=== PATIENT | female | born 1960 | race Caucasian/White ===

== ENCOUNTER → 2016-04-22 | Outpatient (CLI) | payer BC ==
[~2016-04-22] MED LIST: ALBINS; ALBU0.5N2 INH; ATRINS NEB; AZIT250T PO; CETI10TA84 PO; DEXT1TAB50 PO; FLNIN; HYDR200T5 PO; MOME200A INH; MONT1TAB3 PO; PRED10TA PO; PRED50TA PO; SNG10; SYMIN160 INH
--- NOTE | 2016-04-22 10:27 | DIAGNOSTIC IMAGING REPORT ---
TWO VIEW CHEST CLINICAL HISTORY: Extrinsic asthma. FINDINGS: PA and lateral chest radiographs are compared to study dated 04/13/2007. The cardiomediastinal silhouette is unremarkable. There is mild chronic elevation of the right hemidiaphragm with right basilar atelectasis. The lungs and pleural spaces are otherwise clear. There is no pneumothorax. The bony thorax appears intact. Cholecystectomy clips are identified in the right upper quadrant. IMPRESSION: No active disease in the chest. Electronically signed by: Andrea Arceo M.D. 04/22/2016 10:25 AM Dictated Date/Time: 04/22/2016 10:24 AM
== END | disposition home or self-care (01) ==
LOC: C.RAD1850 09:44
PROVIDERS: ATTEND Internal Medicine Pulmonary Disease
DX: J45.909 Unspecified asthma, uncomplicated (principal)

== ENCOUNTER → 2016-04-26 | Outpatient (CLI) | payer BC | END | disposition home or self-care (01) | LOC: C.LABSPEC 11:10 | PROVIDERS: ATTEND Internal Medicine Pulmonary Disease | DX: R05 Cough (principal) ==

== ENCOUNTER 2016-04-28 15:37 | Emergency (ER) | payer BC ==
[~2016-04-28] VITALS: Ht 158.8 cm; Wt 99.8 kg
[~2016-04-28 15:37] MED LIST changes: -ATRINS NEB; -DEXT1TAB50 PO; -HYDR200T5 PO; -MOME200A INH; -MONT1TAB3 PO; -PRED10TA PO
[2016-04-28 15:41] VITALS: TEMP 36.3
--- NOTE | 2016-04-28 16:02 | EMERGENCY ROOM VISIT NOTE ---
History Report prepared by Queenie: Marco A Aguilar Under the Supervision of: Dr. Sarath Jackson D.O. First contact with patient: 15:45 Chief Complaint: RESPIRATORY PROBLEMS Stated Complaint: ASTHMA ATTACK History of Present Illness The patient is a 55 year old female who presents to the Emergency Room with complaints of shortness of breath and chest pain. The patient has had symptoms which have been ongoing for the last 4 weeks. She's been on multiple antibiotics as well as rounds of prednisone. She's also been started on a bronchodilator. She was on Augmentin and doxycycline and was switched to Levaquin this Friday by her primary care physician. She's been using bronchodilator nebulizers and also she is been taking steroids. The patient states she's had a subjective fever as well as runny nose. She complaint of cough and shortness of breath as well as chest discomfort. She describes her discomfort as continuous and pressure. She states that the bronchodilator therapy does help at times. The patient became concerned because symptoms were starting to worsen throughout the day. She states it is worsened with walking as well as coughing. She also complains of sore throat. Source of History: patient Onset: The last four weeks Position: other (Lungs) Symptom Intensity: moderate Quality: other (shortness of breath) Timing: worsening Modifying Factors (Worsening): exertion, other (coughing) Associated Symptoms: + chest pain, + cough, + fevers, + sorethroat Note: She has associated rhinorrhea. Review of Systems See HPI for pertinent positives & negatives. A total of 10 systems reviewed and were otherwise negative. Past Medical & Surgical Medical Problems: (1) Asthma (2) Bronchitis Surgical Problems: (1) History of appendectomy (2) History of cholecystectomy Family History Diabetes mellitus Hypertension Kidney disease Kidney stones Social History Smoking Status: Never Smoker Smokeless Tobacco Use: No Alcohol Use: occasionally Marital Status: Housing Status: lives with family Occupation Status: employed Current/Historical Medications Scheduled Cetirizine (Zyrtec), 10 MG PO DAILY Dextromethorphan-Guaifenesin (Mucinex Dm Maximum Streng), 1 TAB PO BID Hydroxychloroquine Sulfate (Plaquenil), 200 MG PO DAILY Mometasone Furoate-Formoterol (Dulera 200/5 Mcg), 2 PUFFS INH BID Montelukast Sodium (Singulair), 10 MG PO QPM Prednisone (Prednisone), 0 PO UD Scheduled PRN Ipratropium [place] (Ipratropium [place]), 1 VIAL NEB Q6 PRN for Shortness of Breath Allergies Coded Allergies: Aspirin (Verified Allergy, Mild, SWELLING, 04/28/16) Physical Exam Vital Signs Date Time Temp Pulse Resp B/P Pulse Ox O2 Delivery O2 Flow Rate FiO2 04/28/16 18:59 79 22 151/103 98 04/28/16 18:14 79 22 151/103 98 Nasal Cannula 2.0 04/28/16 17:09 80 20 148/98 98 Nasal Cannula 2.0 04/28/16 16:19 99 Nasal Cannula 2.0 04/28/16 16:18 90 04/28/16 16:12 98 Room Air 04/28/16 16:00 98 Room Air 04/28/16 15:41 36.3 101 36 158/90 99 Room Air Physical Exam GENERAL: Patient is awake alert in no acute distress patient is resting comfortably and showing no signs of anxiety EYES: The conjunctivae are clear. The pupils are round and reactive. EARS, NOSE, MOUTH AND THROAT: The nose is without any evidence of any deformity. There is mild erythema in the posterior oral pharynx. There is no significant swelling. Nasal mucosa is erythematous. NECK: The neck is nontender and supple. RESPIRATORY: Normal respiratory effort is noted there is no evidence of wheezing rhonchi or rales CARDIOVASCULAR: Regular rate and rhythm noted there no murmurs rubs or gallops normal S1 normal S2 GASTROINTESTINAL: The abdomen is soft. Bowel sounds are present in all quadrants. Abdomen is nontender MUSCULOSKELETAL/EXTREMITIES: There is no evidence of gross deformity full range of motion is noted in the hips and shoulders SKIN: There is no obvious evidence of any rash. There are no petechiae, pallor or cyanosis noted. NEUROLOGIC: Patient is awake alert and oriented x3 strength is symmetric. Medical Decision & Procedures ER Provider Diagnostic Interpretation: X-ray results as stated below per interpretation by me and the radiologist. CHEST ONE VIEW PORTABLE CLINICAL HISTORY: Respiratory distress. Asthma attack. COMPARISON STUDY: 04/22/2016 FINDINGS: The cardiac and mediastinal contours are normal. There is no evidence of focal pulmonary consolidation. There is no evidence of failure. 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 There is mild elevation/eventration of the right hemidiaphragm. IMPRESSION: No active disease in the chest. Electronically signed by: Luis Miguel Wilson M.D. 04/28/2016 4:15 PM Dictated Date/Time: 04/28/2016 4:14 PM Laboratory Results 04/28/16 16:12 Red Blood Count 4.58, Mean Corpuscular Volume 93.2, Mean Corpuscular Hemoglobin 33.4, Mean Corpuscular Hemoglobin Concent 35.8, Mean Platelet Volume 9.1, Neutrophils (%) (Auto) 71.3, Lymphocytes (%) (Auto) 19.9, Monocytes (%) (Auto) 7.4, Eosinophils (%) (Auto) 0.3, Basophils (%) (Auto) 0.2, Neutrophils # (Auto) 7.15, Lymphocytes # (Auto) 1.99, Monocytes # (Auto) 0.74, Eosinophils # (Auto) 0.03, Basophils # (Auto) 0.02 04/28/16 16:12 Test 04/28/16 16:00 04/28/16 16:12 04/28/16 16:17 04/28/16 16:20 Urine Color YELLOW Urine Appearance CLEAR (CLEAR) Urine pH 7.5 (4.5-7.5) Urine Specific [place] 1.006 (1.000-1.030) Urine Protein NEG (NEG) Urine Glucose (UA) NEG (NEG) Urine Ketones NEG (NEG) Urine Occult Blood NEG (NEG) Urine Nitrite NEG (NEG) Urine Bilirubin NEG (NEG) Urine Urobilinogen NEG (NEG) Urine Leukocyte Esterase SMALL (NEG) Urine WBC (Auto) 1-5 /hpf (0-5) Urine RBC (Auto) 0-4 /hpf (0-4) Urine Hyaline Casts (Auto) 0 /lpf (0-5) Urine Epithelial Cells (Auto) >30 /lpf (0-5) Urine Bacteria (Auto) NEG (NEG) White Blood Count 10.02 K/uL (4.8-10.8) Red Blood Count 4.58 M/uL (4.2-5.4) Hemoglobin 15.3 g/dL (12.0-16.0) Hematocrit 42.7 % (37-47) Mean Corpuscular Volume 93.2 fL (80-100) Mean Corpuscular Hemoglobin 33.4 pg (25-34) Mean Corpuscular Hemoglobin Concent 35.8 g/dl (32-36) Platelet Count 328 K/uL (130-400) Mean Platelet Volume 9.1 fL (7.4-10.4) Neutrophils (%) (Auto) 71.3 % Lymphocytes (%) (Auto) 19.9 % Monocytes (%) (Auto) 7.4 % Eosinophils (%) (Auto) 0.3 % Basophils (%) (Auto) 0.2 % Neutrophils # (Auto) 7.15 K/uL (1.4-6.5) Lymphocytes # (Auto) 1.99 K/uL (1.2-3.4) Monocytes # (Auto) 0.74 K/uL (0.11-0.59) Eosinophils # (Auto) 0.03 K/uL (0-0.5) Basophils # (Auto) 0.02 K/uL (0-0.2) RDW Standard Deviation 44.7 fL (36.4-46.3) RDW Coefficient of Variation 13.2 % (11.5-14.5) Immature Granulocyte % (Auto) 0.9 % Immature Granulocyte # (Auto) 0.09 K/uL (0.00-0.02) Prothrombin Time 10.3 SECONDS (9.0-12.0) Prothromb Time International Ratio 1.0 (0.9-1.1) Activated Partial Thromboplast Time 22.9 SECONDS (21.0-31.0) Partial Thromboplastin Ratio 0.9 Anion Gap 15.0 mmol/L (3-11) Est Creatinine Clear Calc Drug Dose 81.6 ml/min Estimated GFR () 86.3 Estimated GFR (Non- 74.5 BUN/Creatinine Ratio 23.1 (10-20) Calcium Level 8.9 mg/dl (8.5-10.1) Total Bilirubin 0.2 mg/dl (0.2-1) Aspartate Amino Transf (AST/SGOT) 11 U/L (15-37) Alanine Aminotransferase (ALT/SGPT) 26 U/L (12-78) Alkaline Phosphatase 65 U/L (45-117) Total Creatine Kinase 44 U/L (26-192) Creatine Kinase MB 1.9 ng/ml (0.5-3.6) Creatine Kinase MB Ratio 4.3 (0-3.0) Troponin I < 0.015 ng/ml (0-0.045) Pro-B-Type Natriuretic Peptide 48 pg/ml (0-900) Total Protein 7.9 gm/dl (6.4-8.2) Albumin 3.2 gm/dl (3.4-5.0) Globulin 4.7 gm/dl (2.5-4.0) Albumin/Globulin Ratio 0.7 (0.9-2) Bedside D-Dimer 81 ng/mlFEU (0-450) Influenza Type A Antigen Neg for Influ A (NEG) Influenza Type B Antigen Neg for Influ B (NEG) Laboratory results per my review. Medications Administered Medications (Trade) Dose Ordered Sig/Elissa Route Start Time Stop Time Status Last Admin Dose Admin Sodium Chloride (Nss 1000ml) 1,000 ml @ 999 mls/hr Q1H1M STAT IV 04/28/16 16:52 04/28/16 17:52 DC 04/28/16 16:52 999 MLS/HR Albuterol/ Ipratropium (Duoneb) 3 ml NOW STAT INH 04/28/16 18:16 04/28/16 18:17 DC 04/28/16 18:26 3 ML ECG Indication: SOB/dyspnea Rate (beats per minute): 87 Rhythm: normal sinus Findings: no ectopy, other (No acute ST abnormalities) Comparison ECG Date: 26 Apr 2009 Change: no significant change ED Course 1545: The patient was evaluated in room C3. A complete history and physical examination were performed. 1652: Sodium Chloride 1,000 ml @ 999 mls/hr IV 1708: I reassessed the patient at this time. We discussed her results. 1816: Duoneb 3 ml INH 1900: Upon reevaluation, the patient is resting. I discussed the results and treatment plan with her. She verbalized agreement of the treatment plan. She was discharged home. Medical Decision Prior records/ancillary studies reviewed. Triage Nursing notes reviewed. The patient's history was concerning for respiratory difficulties. Differential diagnosis: Etiologies such as infections, reactive airway disease, pneumonia, pneumothorax , COPD, CHF, cardiac ischemia, pulmonary embolism, musculoskeletal, gastrointestinal, as well as others were entertained. The patient is a 55-year-old female who presented to the emergency department for an evaluation of shortness of breath. The patient has been increasing cough and shortness of breath for a few months. The patient has been seen by her primary care physician and has been started on multiple antibiotics. She's had a course of Augmentin doxycycline and was recently started on Levaquin. The patient is also been taking steroids. The patient was seen by her primary lead pony rider as well as her primary care physician. The patient was not hypoxic or tachycardic. I discussed the patient's laboratory and radiographic studies with him. Her EKG did not show any acute changes despite having ongoing pain for quite some time and her cardiac biomarkers were negative. The patient was treated with bronchodilator therapy in emergency department. She was also given IV fluids. On subsequent reevaluation she was somewhat improved. I discussed the patient's condition with her and at this time she does not appear to meet criteria for any further inpatient management. She was encouraged to rest and avoid any strenuous activity. She was encouraged to call her primary care physician as well as her primary lead pony rider in the morning to schedule a follow-up appointment. Otherwise she was encouraged to return to the emergency Department immediately if symptoms change worsen or if the need arises. Impression Primary Impression: SOB (shortness of breath) Additional Impressions: Anterior chest wall pain Dehydration Scribe Attestation The scribe's documentation has been prepared under my direction and personally reviewed by me in its entirety. I confirm that the note above accurately reflects all work, treatment, procedures, and medical decision making performed by me. Departure Information Dispostion Home / Self-Care Referrals Shanta Calderón D.O. (PCP) James Isbell M.D. Forms HOME CARE DOCUMENTATION FORM, IMPORTANT VISIT INFORMATION, WORK / SCHOOL INSTRUCTIONS Patient Instructions ED Dyspnea Shortness of Breath, My [facility] Additional Instructions Call your primary care physician to schedule a follow-up appointment for this week. I would recommend repeat laboratory study to reassess your Juan F levels specifically your HCO3 and your BUN because they were abnormal today in the emergency department. Drink plenty clear liquids. Follow-up with your lead pony rider this week for reevaluation. Continue all medications as prescribed. Return to the emergency department immediately if symptoms change worsen or the need arises. Problem Qualifiers
--- NOTE | 2016-04-28 16:17 | DIAGNOSTIC IMAGING REPORT ---
CHEST ONE VIEW PORTABLE CLINICAL HISTORY: Respiratory distress. Asthma attack. COMPARISON STUDY: 04/22/2016 FINDINGS: The cardiac and mediastinal contours are normal. There is no evidence of focal pulmonary consolidation. There is no evidence of failure. 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 There is mild elevation/eventration of the right hemidiaphragm. IMPRESSION: No active disease in the chest. Electronically signed by: Luis Miguel Wilson M.D. 04/28/2016 4:15 PM Dictated Date/Time: 04/28/2016 4:14 PM
[2016-04-28 16:18] VITALS: Ht 158.8 cm; Wt 99.8 kg
[2016-04-28 16:19] VITALS: O2SAT 99
[2016-04-28 16:23] LABS: BASO % 0.2 %; BASO ABS # 0.02 K/uL (0-0.2); COMPLETE YES; EOS % 0.3 %; HEMATOCRIT 42.7 % (37-47); IG% 0.9 %; LYMPH % 19.9 %; LYMPH ABS # 1.99 K/uL (1.2-3.4); MEAN CELL VOLUME 93.2 fL (80-100); MEAN CORPUSCULAR HEMOGLOBIN 33.4 pg (25-34); MEAN CORPUSCULAR HGB CONC 35.8 g/dl (32-36); MEAN PLATELET VOLUME 9.1 fL (7.4-10.4); MONO % 7.4 %; NEUT % 71.3 %; PLATELET COUNT 328 K/uL (130-400); RED BLOOD COUNT 4.58 M/uL (4.2-5.4); WHITE BLOOD COUNT 10.02 K/uL (4.8-10.8)
[2016-04-28 16:34] LABS: PARTIAL THROMBOPLASTIN RATIO 0.9; PROTHROMBIN TIME (PATIENT) 10.3 SECONDS (9.0-12.0)
[2016-04-28 16:34] LABS: URINE APPEARANCE CLEAR (CLEAR); URINE BILIRUBIN NEG (NEG); URINE COLOR YELLOW; URINE EPITHELIAL CELL AUTO >30 /lpf (0-5); URINE NITRITE NEG (NEG); URINE PH 7.5 (4.5-7.5); URINE SPECIFIC GRAVITY 1.006 (1.000-1.030); UROBILINOGEN NEG (NEG)
[2016-04-28 16:36] LABS: ALT/SGPT 26 U/L (12-78); AST/SGOT 11 U/L (15-37); BLOOD UREA NITROGEN 20 mg/dl (7-18); BUN/CREATININE RATIO 23.1 (10-20); CALCIUM 8.9 mg/dl (8.5-10.1); CARBON DIOXIDE 18 mmol/L (21-32); CHLORIDE 108 mmol/L (98-107); CREATININE 0.88 mg/dl (0.60-1.20); GLUCOSE 100 mg/dl (70-99); POTASSIUM 3.9 mmol/L (3.5-5.1); SODIUM 141 mmol/L (136-145)
[2016-04-28 16:40] LABS: MANUAL MICROSCOPIC REQUIRED? NO; REVIEW REQ? NO
[2016-04-28 16:41] LABS: ALB/GLOB RATIO 0.7 (0.9-2); ALKALINE PHOSPHATASE 65 U/L (45-117); CKMB/CK RATIO 4.3 (0-3.0)
[2016-04-28] MEDS ORDERED: PRED10TA PO (16:50)
[2016-04-28] MEDS ORDERED: MOME200A INH (16:51)
[2016-04-28] MEDS ORDERED: MONT1TAB3 PO (16:51)
[2016-04-28] MEDS ORDERED: SODIUM CHLORIDE 0.9% 1000ML 1,000 ML IV STA (16:52)
[2016-04-28] MEDS ORDERED: ATRINS NEB (16:52)
[2016-04-28] MEDS ORDERED: HYDR200T5 PO (16:52)
[2016-04-28] MEDS ORDERED: DEXT1TAB50 PO (16:53)
[2016-04-28] MEDS ORDERED: ALBUT/IPRATROP 3MG/0.5MG NEB 3 ML VIAL INH STA (18:16)
[2016-04-28 18:59] VITALS: BP 151/103; PULSE 79; O2SAT 98
== END 2016-04-28 19:00 | disposition home or self-care (01) ==
LOC: C.EDB 15:37 → C.EDC 19:00
DX: R06.02 Shortness of breath (principal); R07.89 Other chest pain; E86.0 Dehydration; J45.909 Unspecified asthma, uncomplicated; Z79.899 Other long term (current) drug therapy; Z83.3 Family history of diabetes mellitus; Z82.49 Family history of ischemic heart disease and other diseases of the circulatory system; Z84.1 Family history of disorders of kidney and ureter

== ENCOUNTER → 2016-11-01 | Outpatient (CLI) | payer BC ==
[~2016-11-01] MED LIST changes: -ALBINS; -ALBU0.5N2 INH; +ATRINS NEB; -AZIT250T PO; +DEXT1TAB50 PO; -FLNIN; +HYDR200T5 PO; +MOME200A INH; +MONT1TAB3 PO; +PRED10TA PO; -PRED50TA PO; -SNG10; -SYMIN160 INH
--- NOTE | 2016-11-04 07:43 | MAMMOGRAPHY REPORT ---
BILATERAL DIGITAL SCREENING MAMMOGRAM TOMOSYNTHESIS WITH CAD: 11/01/2016 CLINICAL HISTORY: Routine screening. Patient has no complaints. TECHNIQUE: Breast tomosynthesis in addition to standard 2D mammography was performed. Current study was also evaluated with a Computer Aided Detection (CAD) system. COMPARISON: Comparison is made to exams dated: 10/27/2015 mammogram, 10/24/2014 mammogram, 10/22/2013 m ammogram, 10/21/2012 mammogram, 10/21/2011 mammogram, and 10/17/2010 mammogram - [facility] enter. BREAST COMPOSITION: There are scattered areas of fibroglandular density in both breasts. FINDINGS: No suspicious masses, calcifications, or areas of architectural distortion are noted in ei ther breast. There has been no significant interval change compared to prior exams. IMPRESSION: ACR BI-RADS CATEGORY 1: NEGATIVE There is no mammographic evidence of malignancy. A 1 year screening mammogram is recommended. The pa tient will receive written notification of the results. Approximately 10% of breast cancers are not detected with mammography. A negative mammographic report should not delay biopsy if a clinically suggestive mass is present. Angelica Gilman M.D. /:11/01/2016 14:57:50 Cp Bleacher Operator: Charo Estrada [facility] letter sent: Normal 1/2 BI-RADS Code: ACR BI-RADS Category 1: Negative
== END | disposition home or self-care (01) ==
LOC: C.MAMM 13:16
PROVIDERS: ATTEND Family Medicine
DX: Z12.31 Encounter for screening mammogram for malignant neoplasm of breast (principal)

== ENCOUNTER → 2017-02-24 | Day surgery (SDC) | payer BC ==
[2017-02-17 07:36] VITALS: BMI 40.0
[~2017-02-24] VITALS: Ht 157.5 cm; Wt 100.0 kg
[~2017-02-24] MED LIST changes: +ADVIN25/60 INH; -ATRINS NEB; +ATROPINE SULFATE 0.1 MG/ML 5ML SYR IV PRN; +CETI10TA10 PO; -CETI10TA84 PO; -DEXT1TAB50 PO; +EpHEDrine SULFATE INJ 50 MG/ML AMP IV PRN; -HYDR200T5 PO; +LIDOCAINE HCL 2% 2 ML VIAL (20MG/ML) ONE; -MOME200A INH; +MULT-506 PO; -PRED10TA PO; +PRLSR20 PO; +PROPOFOL IV EMULSION 10 MG/ML 20 ML VIAL IV ONE; +SIMV10TA2 PO; +VNTHFA/IN INH
[2017-02-24 13:50] VITALS: Ht 157.5 cm; Wt 100.0 kg
--- NOTE | 2017-02-24 14:07 | Endo History and Physical ---
History & Physical Date of Service: Feb 24, 2017. Chief Complaint: Screening Referring Physician: Dr. Calderón History of Present Illness For colonoscopy Past Surgical History Hx Cardiac Surgery: No Hx Internal Defibrillator: No Hx Pacemaker: No Hx Abdominal Surgery: Yes (BEVERLY, APPY) Hx Post-Op Nausea and Vomiting: Yes Hx Cancer Surgery: No Hx Thoracic Surgery: No Hx Orthopedic: No Hx Urinary Tract Surgery: No Family History None, IBD Social History Smoking Status: Never Smoker Hx Substance Use: No Hx Alcohol Use: Yes (RARELY) Allergies Coded Allergies: Aspirin (Verified Allergy, Mild, SWELLING, 02/24/17) Current Medications Reported Home Medications Medications Dose Route/Sig Max Daily Dose Days Date Category Multivitamin (Multivitamins) Tab 1 Tab PO QAM 02/17/17 Reported Zocor (Simvastatin) 10 Mg Tab 10 Mg PO QPM 02/17/17 Reported Prilosec (Omeprazole) 20 Mg Capcr 20 Mg PO DAILY PRN 02/17/17 Reported Zyrtec (Cetirizine Hcl) 10 Mg Tab 10 Mg PO DAILY PRN 02/17/17 Reported Ventolin Hfa (Albuterol) 200 Puffs/71504 Mcg Aers 2-4 Puffs INH Q6H PRN 02/17/17 Reported Singulair (Montelukast Sodium) 10 Mg Tab 10 Mg PO QAM 02/17/17 Reported Advair Diskus 250/50 60 Dose (Fluticasone Prop/Salmeterol) 1 Ea Aerp 1 Puff INH BID 02/17/17 Reported Vital Signs Weight (Kilograms): 100.00 Height (Feet): 5 Height (Inches): 2 Physical Exam General Appearance: WD/WN Respiratory/Chest: Respiratory effort: no dyspnea Cardiovascular: Heart Auscultation: RRR Abdomen: Inspection & Palpation: soft Assessment and Plan For screening colonoscopy
--- NOTE | 2017-02-24 14:41 | Discharge Instructions ---
Endoscopy Patient Instructions Date / Procedure(s) Performed Feb 24, 2017. Colonoscopy Allergy Information Coded Allergies: Aspirin (Verified Allergy, Mild, SWELLING, 02/24/17) Discharge Date / Findings Feb 24, 2017. Normal colon Medication Instructions Restart Stopped Medication(s): resume meds Reported Home Medications Medications Dose Route/Sig Max Daily Dose Days Date Category Multivitamin (Multivitamins) Tab 1 Tab PO QAM 02/17/17 Reported Zocor (Simvastatin) 10 Mg Tab 10 Mg PO QPM 02/17/17 Reported Prilosec (Omeprazole) 20 Mg Capcr 20 Mg PO DAILY PRN 02/17/17 Reported Zyrtec (Cetirizine Hcl) 10 Mg Tab 10 Mg PO DAILY PRN 02/17/17 Reported Ventolin Hfa (Albuterol) 200 Puffs/60771 Mcg Aers 2-4 Puffs INH Q6H PRN 02/17/17 Reported Singulair (Montelukast Sodium) 10 Mg Tab 10 Mg PO QAM 02/17/17 Reported Advair Diskus 250/50 60 Dose (Fluticasone Prop/Salmeterol) 1 Ea Aerp 1 Puff INH BID 02/17/17 Reported Provider Instructions Activity Restrictions - No exercising or heavy lifting for 24 hours. - Do not drink alcohol the day of the procedure. - Do not drive a car or operate machinery until the day after the procedure. - Do not make any important decisions or sign important papers in 24 hours after the procedure. Following Day: - Return to full activity which may include returning to work/school. Diet Start your diet with liquids and light foods (jello, soup, juice, toast). Then eat your usual diet if not nauseated. Treatment For Common After Affects For mild abdominal pain, bloating, or excessive gas: - Rest - Eat lightly - Lie on right side Follow-Up Information Follow-up with Dr. Calderón as scheduled Anesthesia Information What You Should Know You have had a procedure that required some medicine to reduce anxiety and discomfort. This treatment is called moderate sedation. After receiving the treatment, you may be sleepy, but you will be able to breathe on your own. The effects of the treatment may last for several hours. Follow these instructions along with Activity/Diet recommendations noted above: * Do NOT do anything where dizziness or clumsiness would be dangerous. * Rest quietly at home today, then you can be up and about tomorrow. * Have a responsible person stay with you the rest of today. * You may have had an I.V. today. If so, you may take the dressing off later today. Recommendations Call your doctor if: * Trouble breathing * Continuous vomiting for more than 24 hours * Temperature above 101 degrees * Severe abdominal pain or bloating * Pain not relieved by pain medicine ordered * There is increased drainage or redness from any incision * A large amount of rectal bleeding greater than 2-3 tablespoons. (If you had a polyp/s removed or have hemorrhoids, a small amount of blood - from the rectum is to be expected.) * You have any unanswered questions or concerns. IN THE EVENT OF A SERIOUS EMERGENCY, GO TO THE NEAREST EMERGENCY ROOM Your discharge instructions were prepared by provider Patrick Nathan. Patient Instructions Signature Page Alissa Samuel Patient (or Guardian) Signature/Date: I have read and understand the instructions given to me by my caregivers. Caregiver/RN/Doctor Signature/Date: The above-named patient and/or guardian has received patient instructions on this date. + Original Patient Signature Page (only) stays with chart. Please make copy for patient.
--- NOTE | 2017-02-24 14:44 | GI REPORT ---
Procedure Date: 02/24/2017 2:06 PM Procedure: Colonoscopy Indications: Screening for colorectal malignant neoplasm Medicines: Propofol total dose 220 mg IV, Lidocaine 40 mg IV Complications: No immediate complications. Estimated Blood Loss: Estimated blood loss: none. Procedure: Pre-Anesthesia Assessment: - Prior to the procedure, a History and Physical was performed, and patient medications, allergies and sensitivities were reviewed. The patient's tolerance of previous anesthesia was reviewed. - The risks and benefits of the procedure and the sedation options and risks were discussed with the patient. All questions were answered and informed consent was obtained. After I obtained informed consent, the scope was passed under direct vision. Throughout the procedure, the patient's blood pressure, pulse, and oxygen saturations were monitored continuously. The scope was introduced through the anus and advanced to the cecum, identified by appendiceal orifice and ileocecal valve. The colonoscopy was somewhat difficult due to significant looping. Successful completion of the procedure was aided by applying abdominal pressure. The patient tolerated the procedure well. The quality of the bowel preparation was excellent. Findings: The entire examined colon appeared normal. Impression: - The entire examined colon is normal. - No specimens collected. Recommendation: - Discharge patient to home (ambulatory). - Continue present medications. - Repeat colonoscopy in 10 years for screening purposes. - Return to primary care physician PRN. Patrick Nathan M.D. Patrick Nathan MD 02/24/2017 2:43:34 PM This report has been signed electronically. Note Initiated On: 02/24/2017 2:06 PM I attest to the content of the Intraoperative Record and orders documented therein, exceptions below
--- NOTE | 2017-02-24 14:59 | Anesthesiology Progress Note ---
Anesthesia Post Op Note Date & Time Feb 24, 2017 at 14:59 Vital Signs Pain Intensity: 0 Vital Signs Past 12 Hours Date Time Temp Pulse Resp B/P (MAP) Pulse Ox O2 Delivery O2 Flow Rate FiO2 02/24/17 14:43 84 16 102/82 (89) 92 Room Air 02/24/17 13:59 36.5 89 18 122/80 (94) 95 Room Air Notes Mental Status: alert / awake / arousable, participated in evaluation Pt Amnestic to Procedure: Yes Nausea / Vomiting: adequately controlled Pain: adequately controlled Airway Patency, RR, SpO2: stable & adequate BP & HR: stable & adequate Hydration State: stable & adequate Anesthetic Complications: no major complications apparent
[2017-02-24 15:13] VITALS: BP 127/81; PULSE 71; O2SAT 93
== END | disposition home or self-care (01) ==
LOC: C.GI 13:30
PROVIDERS: ATTEND Internal Medicine Gastroenterology
DX: Z12.11 Encounter for screening for malignant neoplasm of colon (principal); Z83.79 Family history of other diseases of the digestive system; K21.9 Gastro-esophageal reflux disease without esophagitis; M35.00 Sjogren syndrome, unspecified; E78.5 Hyperlipidemia, unspecified

== ENCOUNTER → 2017-06-27 | Outpatient (CLI) | payer OTHER ==
[~2017-06-27] MED LIST changes: -ATROPINE SULFATE 0.1 MG/ML 5ML SYR IV PRN; -EpHEDrine SULFATE INJ 50 MG/ML AMP IV PRN; -LIDOCAINE HCL 2% 2 ML VIAL (20MG/ML) ONE; -PROPOFOL IV EMULSION 10 MG/ML 20 ML VIAL IV ONE
--- NOTE | 2017-06-27 15:38 | DIAGNOSTIC IMAGING REPORT ---
CHEST 2 VIEWS ROUTINE CLINICAL HISTORY: R05 CougH dyspnea COMPARISON STUDY: 04/28/2016 FINDINGS: The lungs are clear. Interposed bowel beneath right hemidiaphragm unchanged in the prior study. No focal infiltrate. No significant cardiac enlargement. IMPRESSION: No acute process. The above report was generated using voice recognition software. It may contain grammatical, syntax or spelling errors. Electronically signed by: Maxim Bermudez M.D. 06/27/2017 3:36 PM Dictated Date/Time: 06/27/2017 3:35 PM
== END | disposition home or self-care (01) ==
LOC: C.RAD1850 15:21
PROVIDERS: ATTEND Physician Assistant Medical
DX: R05 Cough (principal)

== ENCOUNTER → 2017-11-03 | Outpatient (CLI) | payer OTHER ==
--- NOTE | 2017-11-04 15:22 | MAMMOGRAPHY REPORT ---
BILATERAL DIGITAL SCREENING MAMMOGRAM TOMOSYNTHESIS WITH CAD: 11/03/2017 CLINICAL HISTORY: Routine screening. TECHNIQUE: The study was acquired using full field digital technology and interpreted from soft copy. Breast tomosynthesis in addition to standard 2D mammography was performed. Current study was also ev aluated with a Computer Aided Detection (CAD) system. COMPARISON: Comparison is made to exams dated: 11/01/2016 mammogram, 10/27/2015 mammogram, 10/24/2014 m ammogram, 10/22/2013 mammogram, 10/21/2012 mammogram, and 10/21/2011 mammogram - [facility] enter. BREAST COMPOSITION: The tissue of both breasts is almost entirely fatty. FINDINGS: Slightly prominent bilateral axillary lymph nodes appear stable in size and number dating b ack to at least 2008. No suspicious breast mass, architectural distortion or cluster of microcalcific ations is seen. IMPRESSION: ACR BI-RADS CATEGORY 1: NEGATIVE There is no mammographic evidence of malignancy. A 1 year screening mammogram is recommended.( 019) The patient will receive written notification of the results. Some breast cancers are not detected with mammography. A negative mammographic report should not dixie y biopsy if a clinically suggestive mass is present. Dayana Dhaliwal M.D. ay/:11/03/2017 16:12:53 Chronometer Adjuster: RT Vanessa(Galindo)(M), [facility] letter sent: Normal 1/2 BI-RADS Code: ACR BI-RADS Category 1: Negative
== END | disposition home or self-care (01) ==
LOC: C.MAMM 14:07
PROVIDERS: ATTEND Family Medicine
DX: Z12.31 Encounter for screening mammogram for malignant neoplasm of breast (principal)